=== PATIENT | female | born 1965 | race Caucasian/White ===

== ENCOUNTER → 2017-09-04 | Outpatient (CLI) | payer OTHER | LOC: M.CT 07:41 | DX: C56.9 Malignant neoplasm of unspecified ovary (principal); K43.9 Ventral hernia without obstruction or gangrene ==

== ENCOUNTER → 2017-12-22 | Outpatient (CLI) | payer OTHER | LOC: M.RAD 09:16 → M.ADM 09:16 | DX: M77.32 Calcaneal spur, left foot (principal) ==

== ENCOUNTER → 2018-04-01 | Outpatient (CLI) | payer OTHER | LOC: M.RAD 13:27 | DX: Z12.31 Encounter for screening mammogram for malignant neoplasm of breast (principal) ==

== ENCOUNTER → 2019-04-19 | Outpatient (CLI) | payer MEDICARE | LOC: M.RAD 10:46 | DX: Z12.31 Encounter for screening mammogram for malignant neoplasm of breast (principal) ==

== ENCOUNTER → 2019-12-27 | Outpatient (CLI) | payer MEDICARE | LOC: M.ULTRA 08:00 | PROVIDERS: ATTEND Family Medicine | DX: I82.B12 Acute embolism and thrombosis of left subclavian vein (principal) ==

== ENCOUNTER → 2020-03-31 | Outpatient (CLI) | payer MEDICARE | LOC: M.ULTRA 07:53 | PROVIDERS: ATTEND Family Medicine | DX: I82.622 Acute embolism and thrombosis of deep veins of left upper extremity (principal) ==